=== PATIENT | male | born 1965 | race Caucasian/White ===

== ENCOUNTER 2018-09-11 21:44 | Emergency (ER) | payer OTHER ==
[~2018-09-11] VITALS: Ht 188 cm; Wt 131.5 kg
== END 2018-09-12 04:06 | disposition home or self-care (01) ==
LOC: ER 21:44 → CPU-OBS 21:46 → ER 21:46
DX: R07.89 Other chest pain (principal); R00.0 Tachycardia, unspecified; E86.0 Dehydration
CPT/HCPCS: G0378; G0379; 93005